=== PATIENT | female | born 1985 | race Caucasian/White ===

== ENCOUNTER 2016-10-19 13:47 | Emergency (ER) | payer OTHER ==
[~2016-10-19] VITALS: Wt 58.0 kg
--- NOTE | 2016-10-19 15:29 | ERD ---
ER Documentation Chief Complaint Date/Time DATE: 10/19/16 TIME: 15:15 Chief Complaint VAG BLEED WITH MILD LOW ABD PAIN SINCE TODAY . 7 WKS PREG HPI 31 y/o female presents to ED for vaginal bleeding. Stated that she saw a streak of blood described as dark red on her vaginal area this morning. Also complains of mild lower abdominal/pelvic pain that started this morning. Pain was described as achy nonradiating. She is 7 weeks . On her fourth . Nauseated but no vomiting. Last seen her OB doctor 10/03/2016 for bladder infection and was prescribed Macrobid. Denies headache, loss of consciousness, dizziness, blurry vision, changes in vision, photophobia, facial pain, ear pain, throat pain, difficulty swallowing, neck pain, shoulder pain, chest pain, cough, hemoptysis, back pain, loss of appetite, vomiting, hematochezia, diarrhea, constipation, urinary symptoms, bladder and bowel incontinences, extremity weakness, extremity tenderness, numbness or tingling sensation, difficulty walking, recent travel, recent exposure to illness, fever, chills. Allergy: NKA PMH: Denies. Family medical history: Denies. with 2 miscarriages LMP: 08/25/2016 Medications: vitamins. Surgery: Denies. Primary Social History: Works as a pharmacy benefits coordinator. Quit smoking cigarettes 5 years ago. Denies use of alcohol, use of illegal drugs. ROS All systems reviewed and are negative except as per history of present illness. Allergies Allergies: Coded Allergies: No Known Allergy (Unverified , 10/19/16) Physical Exam Vitals Vital Signs Date Time Temp Pulse Resp B/P Pulse Ox O2 Delivery O2 Flow Rate FiO2 10/19/16 13:58 98.7 74 20 120/67 98 Physical Exam CONSTITUTIONAL: Well-appearing; well-nourished; in no apparent distress. HEAD: Normocephalic; atraumatic. EYES: Conjunctiva clear, sclera non-icteric, EOM intact. PERRL Ears: Hearing intact. EACs clear, TMs non-bulging, non-inflamed, translucent & mobile, ossicles normal appearance, No obstructions, no erythema, no discharges Nose: No obstructions. No polyps. No external lesions. Mucosa non-inflamed. No external lesions, septum and turbinates normal. No rhinorrhea. No discharges. Frontal sinus is non-tender to palpation. Maxillary sinus is non-tender to palpation. MOUTH: Moist mucous membranes, no lesion, no obstructions, no vesicles, no thrush, patent airway Throat: Uvula in midline. Right tonsil is +1 with no erythema, no exudate. Left tonsil is +1 with no erythema, no exudate. Tolerating secretions well. Good gag reflex. Patent airway. Neck: Supple, without lesions, bruits, or adenopathy. No mass. Thyroid non- enlarged and non-tender to palpation. CHEST: Symmetrical chest. Respirations even and not labored. No retractions noted. CARDIOVASCULAR: Normal S1, S2. RRR. No murmurs, gallops. RESPIRATORY: Normal chest excursion with respiration; breath sounds clear and equal bilaterally; no wheezes, rhonchi, or rales. Breathing even and unlabored. Speaking in clear, full, and complete sentences w/ ease. ABDOMEN: Normal bowel sounds normal. Soft, round, non-distended, non-guarding, no tenderness, no rebound, no organomegaly, no masses, no pulsating abdominal mass. No hernia. No peritoneal signs. Mild pelvic pain. : No CVA tenderness. BACK: Symmetrical shoulder. Spine is midline without deformity, tenderness. No evidence of trauma or deformity. PELVIS: Stable pelvis. No evidence of trauma or deformity. MUSCULOSKELETAL: Normal gait and station. No misalignment, asymmetry, crepitation, defects, tenderness, masses, effusions, decreased range of motion, instability, atrophy or abnormal strength or tone in the head, neck, spine, ribs , pelvis or extremities. No calf tenderness. NEUROVASCULAR: Distal pulses are present. Pedal pulse are present, equal, and normal. Capillary refills are < 2 seconds. NEUROLOGIC: Alert and oriented x4. Speaks full and clear sentences. Cranial Nerves II-XII normal. Sensation to pain, touch, and proprioception normal. Grossly unremarkable. No neurologic deficits. Romberg test is negative. PSYCHOLOGICAL: The patients mood and manner are appropriate. No hallucinations , delusions. Not SI. Not HI. Has the capacity to decide for self SKIN: Normal for age and ethnicity; warm; dry; good turgor; no apparent lesions or exudates. No rashes, hives, discoloration. Intact. Result Diagram: 10/19/16 1345 Results 24 hrs Laboratory Tests Test 10/19/16 13:45 Basophils # 0.110^3/ul Basophils % 1.4% Beta HCG, Quantitative 8325.4mIU/ml Blood Morphology Comment Eosinophils # 0.110^3/ul Eosinophils % 0.9% Hematocrit 42.3% Hemoglobin 14.2g/dl Lymphocytes # 2.310^3/ul Lymphocytes % 25.0% Mean Corpuscular Hemoglobin 28.6pg Mean Corpuscular Hemoglobin Concent 33.5g/dl Mean Corpuscular Volume 85.4fl Mean Platelet Volume 8.0fl Monocytes # 0.610^3/ul Monocytes % 6.2% Neutrophils # 6.210^3/ul Neutrophils % 66.5% Nucleated Red Blood Cells # 0.010^3/ul Nucleated Red Blood Cells % 0.0/100WBC Platelet Count 44853^3/UL Red Blood Count 4.9510^6/ul Red Cell Distribution Width 14.6% Urine Bacteria MODERATE Urine Bilirubin NEGATIVE Urine Clarity CLOUDY Urine Color YELLOW Urine Glucose NEGATIVE% Urine Hemoglobin 3+ Urine Ketones NEGATIVE Urine Leukocyte Esterase TRACE Urine Microscopic RBC 2-5/HPF Urine Microscopic WBC 10-25/HPF Urine Nitrite NEGATIVE Urine Specific Harned 1.025 Urine Squamous Epithelial Cells MANY Urine Total Protein NEGATIVE Urine Urobilinogen 0.2 E.U./dL Urine pH 6.0 White Blood Count 9.310^3/ul Procedures/MDM Examination: Unremarkable examination except mild pelvic pain. No CVA tenderness. Disease process, medical treatment was explained to the patient and family member. They verbalized understanding and agreed with the diagnostic tests, medical treatment, and follow-up care. Radiology: Abdominal ultrasound: Findings: There is a single live intrauterine with a heart rate of 158 bpm, mean sac diameter of 1.27 cm, yolk sac, and crown-rump length of 0.64 cm which is consistent with gestational age of 6 weeks, 2 days. Estimated date of delivery by ultrasound is 06/12/2017. Estimated gestational age by LMP 7 weeks, 4 days. Estimated date of delivery by LMP is 05/26/2017. Impression: Single live intrauterine consistent with a gestational age of 6 weeks and 2 days. Estimated date of delivery is 06/12/2017. Dating by ultrasound is within 9 days of dating by LMP. Blood works: Reviewed. POC urine : Positive. Urinalysis: Reviewed. Case, medical treatment, diagnostic test were discussed with supervising emergency room physician, Dr. Chino Meneses who agreed with my present treatment and follow-up care. Treatment: Diagnostic tests. Re-evaluation: Relieve the pain. No active bleeding. Consultation: None. Differential diagnosis: Ectopic versus miscarriage versus vaginal bleeding versus abdominal pain Medical decision makin31 y/o female presents to ED for vaginal bleeding. Stated that she saw a streak of blood described as dark red on her vaginal area this morning. Also complains of mild lower abdominal/pelvic pain that started this morning. Pain was described as achy nonradiating. She is 7 weeks . On her fourth . Nauseated but no vomiting. Last seen her OB doctor 10/03 for bladder infection and was prescribed Macrobid. Patient's complaint, patient's history, my physical findings, diagnostic test results, re-evaluation are consistent with my final diagnosis of single live intrauterine consistent with gestational age of 6 weeks, 2 days. Medications prescribed are the following: Patient and family member are made aware of the side effects and adverse reactions of the medications prescribed. Instructed on when to seek emergent and medical attention in case allergic/anaphylactic reactions or severe side effects and or adverse reactions to medications. Patient and family member verbalized understanding. Patient instructed Instructed to follow-up with his PCP in 24-48 hours. Also instructed to see her on OB in the next 24-48 hours for reevaluation. Patient stated that she has an appointment with her OB in the next couple of days. Instructed to Call 911 for chest pain, shortness of breath. Advised to come back here in ED as soon as possible for severity of symptoms which includes but not limited to: any new symptoms; shortness of breath/difficulty of breathing; cardiovascular changes; severe gastrointestinal symptoms; signs and symptoms of bleeding and or infection; signs of compartment syndrome/neurovascular changes; neurological changes/deficits. Patient and family member verbalized understanding. Upon discharge, patient is alert and oriented x 4, speaks full and clear sentences, denies pain, has no neurological deficits, has no neurovascular deficits, difficulty of breathing. Breathing even and unlabored. Lung sounds are clear to auscultation. Not in distress. Appears comfortable. Ambulatory with steady gait. Appears satisfied with care provided here in ED. Departure Diagnosis: Primary Impression: Vaginal bleeding in patient at less than 20 weeks gestation Condition: Good Additional Instructions: Follow-up with PCP in the next 24-48 hours. Also instructed to see her own OB in the next 24-48 hours. INGA COLEMAN Oct 19, 2016 15:29
[2016-10-19 15:58] LABS: ADD UMIC YES; URINE BILIRUBIN (Dip) NEGATIVE (NEGATIVE); URINE BLOOD (Dip) 3+ (NEGATIVE); URINE GLUCOSE (Dip) NEGATIVE (NEGATIVE); URINE KETONES (Dip) NEGATIVE (NEGATIVE); URINE LEUKOCYTE ESTERASE (Dip) TRACE (NEGATIVE); URINE NITRITE (Dip) NEGATIVE (NEGATIVE); URINE TOTAL PROTEIN (Dip) NEGATIVE (NEGATIVE); URINE UROBILINOGEN (Dip) 0.2 E.U./dL (0.1-1.0)
[2016-10-19 15:59] LABS: BASOPHIL # 0.1 10^3/ul (0.0-0.1); BASOPHILS % 1.4 % (0.0-2.0); EOSINOPHILS # 0.1 10^3/ul (0.0-0.5); EOSINOPHILS % 0.9 % (0.0-7.0); HEMATOCRIT 42.3 % (37.0-47.0); HEMOGLOBIN 14.2 g/dl (12.0-16.0); LYMPHOCYTES # 2.3 10^3/ul (0.8-2.9); MEAN CORPUSCULAR HEMOGLOBIN 28.6 pg (29.0-33.0); MEAN CORPUSCULAR HGB CONC 33.5 g/dl (32.0-37.0); MEAN CORPUSCULAR VOLUME 85.4 fl (82.0-101.0); MONOCYTE # 0.6 10^3/ul (0.3-0.9); MONOCYTES % 6.2 % (0.0-11.0); NEUTROPHIL # 6.2 10^3/ul (1.6-7.5); NEUTROPHILS % 66.5 % (39.0-77.0); PLATELET COUNT 350 10^3/UL (140-440); RED BLOOD COUNT 4.95 10^6/ul (4.20-5.40); RED CELL DISTRIBUTION WIDTH 14.6 % (11.5-14.5); UNCORRECTED WBC 9.3 10^3/ul (4.8-10.8); WHITE BLOOD COUNT 9.3 10^3/ul (4.8-10.8)
[2016-10-19 16:05] LABS: CONDITION 1; LH ANALYZER COMMENTS 1
--- NOTE | 2016-10-19 16:05 | RADRPT ---
PROCEDURE: OBSTETRICAL ULTRASOUND WITH ENDOVAGINAL IMAGES CLINICAL INDICATION: Vaginal Bleed () TECHNIQUE: Multiple sonographic images of the pelvis were obtained utilizing a transabdominal and endovaginal technique. The images were reviewed on a PACS workstation. COMPARISON: None. LMP: 08/27/2016 FINDINGS: There is a single live intrauterine with heart rate of 158 beats per minute, mean sa c diameter of 1.27 cm, yolk sac, and crown-rump length of 0.64 cm which is consistent with a gestati onal age of 6 weeks, 2 days . The estimated date of delivery by ultrasound is 06/12/2017 . The estimated gestational age by LMP is 7 weeks, 4 days . The estimated date of delivery by LMP is 06/03/2017 . The right ovary measures 3.2 x 1.9 x 2.1 cm. The left ovary measures 2.8 x 1.8 x 2.3 cm. There is no rmal vascular flow in both ovaries. No significant ovarian lesions are seen. No significant pelvic free fluid is identified. IMPRESSION: Single live intrauterine consistent with a gestational age of 6 weeks, 2 days . The estimated date of delivery is 06/12/2017 . Dating by ultrasound is within 9 days of dating by LMP. RPTAT: EE Physician Ino Date Time Electronically viewed and signed by Physician Ino on 10/19/2016 16:04 /
[2016-10-19 16:07] LABS: URINE COLOR YELLOW (YELLOW)
[2016-10-19 16:13] LABS: SQUAMOUS EPITHELIAL CELL,UR MANY
[2016-10-19 16:14] LABS: BACTERIA,URINE MODERATE
[2016-10-20] MEDS ORDERED: PRENAT PO (03:34)
[2016-10-20] MEDS ORDERED: ACET500C5 PO (04:43)
== END 2016-10-19 17:17 | disposition home or self-care (01) ==
LOC: FTE 13:47
DX: O20.9 Hemorrhage in early pregnancy, unspecified (principal); R10.2 Pelvic and perineal pain; Z87.891 Personal history of nicotine dependence; Z3A.01 Less than 8 weeks gestation of pregnancy
CPT/HCPCS: 36415; 76801; 81001; 84702; 85025; 86900; 86901; Z7502; 81003

== ENCOUNTER 2016-10-20 02:29 | Emergency (ER) | payer OTHER ==
[~2016-10-20] VITALS: Ht 157.5 cm; Wt 60.5 kg
[2016-10-20 02:35] VITALS: Ht 157.5 cm; Wt 60.5 kg
[2016-10-20] MEDS ORDERED: PRENAT PO (03:34)
--- NOTE | 2016-10-20 03:35 | ERD ---
ER Documentation Chief Complaint Date/Time DATE: 10/20/16 TIME: 03:33 Chief Complaint back pain and heavy bleeding 7 wks preg HPI 31-year-old female presents here in emergency department for complaints of heavier vaginal bleeding, patient is approximately 6-7 weeks , was seen in the emergency department earlier today for the same problem. Patient had minimal bleeding at that time, at this time, she is bleeding heavier, passing some clots. Worried about her baby. Patient was complaining of pelvic pain and back pain, cramping pain, succession scale, accompanying the vaginal bleeding. ROS All systems reviewed and are negative except as per history of present illness. Medications Home Meds Reported Medications Multivit/Min/Fol Ac/Iron/Pren* ( S*) Unknown Strength Tab, PO DAILY, TAB 10/20/16 Allergies Allergies: Coded Allergies: No Known Allergy (Unverified , 10/19/16) PMhx/Soc Medical and Surgical Hx: pt denies Medical Hx, pt denies Surgical Hx Hx Miscellaneous Medical Probl: Yes (7 WEEKS ) Hx Alcohol Use: No Hx Substance Use: No Hx Tobacco Use: No FmHx Family History: No coronary disease, No diabetes, No other Physical Exam Vitals Vital Signs Date Time Temp Pulse Resp B/P Pulse Ox O2 Delivery O2 Flow Rate FiO2 10/20/16 02:35 98.6 85 18 111/72 98 Physical Exam GENERAL: The patient is well developed and appropriate for usual state of health, in no apparent distress. CHEST: Clear to auscultation bilaterally. There are no rales, wheezes or rhonchi. HEART: Regular rate and rhythm. No murmurs, clicks, rubs or gallops. No S3 or S4. ABDOMEN: Soft, nontender and nondistended. Good bowel sounds. No rebound or guarding. No gross peritonitis. No gross organomegaly or masses. No Estevez sign or McBurney point tenderness. BACK: No midline or flank tenderness. EXTREMITIES: Equal pulses bilaterally. There is no peripheral clubbing, cyanosis or edema. No focal swelling or erythema. Full range of motion. Grossly neurovascularly intact. NEURO: Alert and oriented. Cranial nerves 2-12 intact. Motor strength in all 4 extremities with 5/5 strength. Sensation grossly intact. Normal speech and gait. SKIN: There is no apparent rash or petechia. The skin is warm and dry. HEMATOLOGIC AND LYMPHATIC: There is no evidence of excessive bruising or lymphedema. No gross cervical, axillary, or inguinal lymphadenopathy. VAGINAL: Moderate amount of blood in the vaginal vault, cervical os is closed, adnexal tenderness or cervical motion tenderness noted. Noted tissue in the vaginal canal. Results 24 hrs PROCEDURE: ULTRASOUND PELVIS CLINICAL INDICATION: 31-year-old female with vaginal bleeding. TECHNIQUE: Multiple sonographic images of the pelvis were obtained utilizing a transabdominal and endovaginal technique. The images were reviewed on a PACS workstation. COMPARISON: Ultrasound pelvis October 19, 2016. FINDINGS: The endometrial echo complex is within normal limits and measures 9.6 mm. There is no evidence for abnormal color flow. There is no sonographic evidence for an intrauterine gestation. There is no evidence for free fluid. The right ovary has a normal echotexture and measures 3.1 x 2.2 x 2.0 cm. The left ovary has a normal echotexture and measures 3.0 x 1.9 x 2.1 cm. There is flow identified within the ovaries bilaterally. No adnexal masses are noted. IMPRESSION: Unremarkable pelvic ultrasound without sonographic evidence for an intrauterine gestation. There appears to have been an interval spontaneous . .Maurice Pina MD, MD Date Time Electronically viewed and signed by .Maurice Pina MD, on 10/20/2016 04:14 .M/ Procedures/MDM Medical Decision Making: Patients vaginal bleeding is most likely consistent of spontaneous . Patient does not show any evidence of hypovolemic shock. Patients hemoglobin and hematocrit is stable. There is low suspicion for ectopic . SANDRA results show possible spontaneous since then to return for any seen seen earlier was not seen anymore. BetaHCG Quantitative is was done earlier today which was appropriate for , a change in beta hCG would not be a appreciated at this time, repeat testing is not indicated at this time. The patient is Rh+, does not need RhoGAM this time. There is no signs of symptoms of dehydration. There is low suspicion for sepsis. Patient appears well and is hemodynamically stable. Disposition: Home. Condition: Stable Prescription: Tylenol Instructions: Patient is advised to do bed rest, avoid heavy lifting, and avoid having sex until cleared by OB doctor. Patient is advised to follow up with OB doctor in 48 hours for reevaluation of symptoms, repeat beta HCG quantitative. Patient is advised that is symptoms are worst, severe bleeding, dizziness, severe abdominal pain, fever, worst signs and symptoms to return to the emergency department immediately. Departure Diagnosis: Primary Impression: Spontaneous Condition: Stable Patient Instructions: Miscarriage, Spontaneous (Completed) Additional Instructions: Patient is advised to do bed rest, avoid heavy lifting, and avoid having sex until cleared by OB doctor. Patient is advised to follow up with OB doctor in 48 hours for reevaluation of symptoms, repeat beta HCG quantitative. Patient is advised that is symptoms are worst, severe bleeding, dizziness, severe abdominal pain, fever, worst signs and symptoms to return to the emergency department immediately. ANILA STALEY NP Oct 20, 2016 03:35
--- NOTE | 2016-10-20 04:14 | RADRPT ---
PROCEDURE: ULTRASOUND PELVIS CLINICAL INDICATION: 31-year-old female with vaginal bleeding. TECHNIQUE: Multiple sonographic images of the pelvis were obtained utilizing a transabdominal and endovaginal technique. The images were reviewed on a PACS workstation. COMPARISON: Ultrasound pelvis October 19, 2016. FINDINGS: The endometrial echo complex is within normal limits and measures 9.6 mm. There is no evidence for a bnormal color flow. There is no sonographic evidence for an intrauterine gestation. There is no ev idence for free fluid. The right ovary has a normal echotexture and measures 3.1 x 2.2 x 2.0 cm. Th e left ovary has a normal echotexture and measures 3.0 x 1.9 x 2.1 cm. There is flow identified wit hin the ovaries bilaterally. No adnexal masses are noted. IMPRESSION: Unremarkable pelvic ultrasound without sonographic evidence for an intrauterine gestation. There ap pears to have been an interval spontaneous . .Maurice Pina MD, MD Date Time Electronically viewed and signed by .Maurice Pina MD, on 10/20/2016 04:14 .M/
[2016-10-20] MEDS ORDERED: ACET500C5 PO (04:43)
== END 2016-10-20 05:35 | disposition home or self-care (01) ==
LOC: FTE 02:29
DX: O03.9 Complete or unspecified spontaneous abortion without complication (principal)
CPT/HCPCS: 76801; 76817; 88305; Z7502

== ENCOUNTER 2017-06-25 16:14 | Outpatient (CLI) | payer OTHER ==
[~2017-06-25] VITALS: Ht 160 cm; Wt 71.1 kg
[~2017-06-25 16:14] MED LIST: ACET500C5 PO; PRENAT PO
[2017-06-25 16:23] VITALS: Ht 160 cm; Wt 71.1 kg
[2017-06-25 16:24] VITALS: BP 107/71; PULSE 85; RESP 20
--- NOTE | 2017-06-25 17:42 | RADRPT ---
PROCEDURE: Obstetrical ultrasound CLINICAL INDICATION: Labor..efw,carlos TECHNIQUE: Multiple sonographic images of the pelvis were obtained. The images were reviewed on a PACS workstation. COMPARISON: None FINDINGS: The cervix is closed with a length of 4.4 cm. There is a single viable intrauterine gestation. Cardiac activity is present with 157 beats per minute. There is a breech presentation. The placenta is posterior. There is no evidence for an abruption or placenta previa. There is a normal amount of amniotic fluid with a maximum vertical pocket of 4.4 cm. Measurements were made in order to determine age. The results are as follows (cm): BPD =5.23 HC =20.31 AC =18.82 FL =4.10 Estimated gestational age by ultrasound of approximately 22 weeks, 6 days. The estimated date of delivery by ultrasound is 10/23/2017. Estimated gestational age by LMP of approximately 22 weeks, 5 days. The estimated date of delivery by LMP is 10/24/2017. EFW = 579 grams (71st percentile) IMPRESSION: Single viable intrauterine gestation of approximately 22 weeks, 6 days . The estimated date of delivery is 10/23/2017 . Dating by ultrasound is within 1 day of dating by LMP. Breech presentation. Normal amount of amniotic fluid. The cervix is closed and measures 4.4 cm. The estimated weight is 579 g which is in the 71st percentile. RPTAT: EE Physician Ino Date Time Electronically viewed and signed by Physician Ino on 06/25/2017 17:42 /
--- NOTE | 2017-06-25 18:09 | PN ---
Triage Information Date/Time Reason for visit: Left side Numbness Weeks of Gestation 3/ /Para 22+ Hypertention: none Objective Vital Signs Date Time Temp Pulse Resp B/P Pulse Ox O2 Delivery O2 Flow Rate FiO2 06/25/17 16:24 98.3 85 20 107/71 99 Room Air Heart Rate: 130's Contractions: None Disposition: Discharge Assessment/Plan patient is cleared from OB and sent to ER for further evaluation CHARMAINE HOUSTON M.D. Jun 25, 2017 18:09
[2017-06-25 18:16] LABS: ADD UMIC NO; UR ASCORBIC ACID NEGATIVE (NEGATIVE); UR BILIRUBIN (Dip) NEGATIVE (NEGATIVE); UR BLOOD (Dip) NEGATIVE (NEGATIVE); UR CLARITY CLEAR (CLEAR); UR COLOR YELLOW (YELLOW); UR GLUCOSE (Dip) NEGATIVE (NEGATIVE); UR KETONES (Dip) NEGATIVE (NEGATIVE); UR LEUKOCYTE ESTERASE (Dip) NEGATIVE Leu/ul (NEGATIVE); UR NITRITE (Dip) NEGATIVE (NEGATIVE); UR SPECIFIC GRAVITY (Dip) 1.014 (1.003-1.030); UR TOTAL PROTEIN (Dip) NEGATIVE (NEGATIVE); UR UROBILINOGEN (Dip) NEGATIVE (NEGATIVE)
--- NOTE | 2017-06-25 19:37 | TRIAGE ---
OB Triage Datetime Report Generated by CPN: 06/25/2017 19:37 Datetime: 06/25/2017 19:32 Stage of : OB Triage Assessment Type: Triage Maternal Assessment Level of Consciousness: Fully Conscious DTR's/Clonus: DTRs 2+; No Clonus Headache: Denies Blurred Vision: No Respiratory Effort: Unlabored; Regular Rhythm; Equal Expansion Breath Sounds, Left: Clear and Equal Breath Sounds, Right: Clear and Equal Nausea/Vomiting: Denies RUQ Epigastric Pain: Denies Lower Extremities Edema: None Degree: None Upper Extremities Edema: None Degree: None Facial Edema: None Temperature Route: Axillary Fall Risk Assessment History of Falling: (0) No Secondary Diagnosis: (0) No Ambulatory Aid: (0) Bedrest/Nurse Assist IV Therapy: (0) No Gait: (0) Normal/Bedrest/Immobile Mental Status: (0) Oriented to Own Ability Fall Score: 0 Fall Risk Score Definition: No Risk: No action required Datetime: 06/25/2017 19:27 Time of Arrival: 06/25/2017 16:00 EGA: 22.5 Arrived By: Ambulatory Arrived From: Home Chief Complaint: LEFT SIDED NUMBNESS from the back of her head to the left side of her hill to her left arm , PAIN, PRESSURE. left eye pain as well Movement: Present Contractions: Denies/Absent Rupture of Membranes: Denies Vaginal Bleeding: None Vaginal Discharge: Denies Recent Sexual Intercouse: Denies Abdominal Trauma: Not Applicable Patient Complaints: Visual Disturbance Time Provider Notified: 06/25/2017 16:15 Provider Notified: CELSO Initial Plan: NST Datetime: 06/25/2017 18:01 Labor Evaluation Frequency: 0 Monitor Mode: External Duration (sec)2399: 0 Resting Tone [place]: Relaxed Contraction Comments: no uc's noted at this time. pt denies uc's Heart Rate FHR Baseline Rate: 155 Monitor Mode: External US Variability: Moderate 6-25 bpm Accelerations: 15X15 Decelerations: None Category: Category I Comments: nst reactive for gestational age Datetime: 06/25/2017 16:30 Assessment Type: Triage Maternal Assessment Level of Consciousness: Fully Conscious DTR's/Clonus: DTRs 2+; No Clonus Headache: Denies Blurred Vision: No Respiratory Effort: Unlabored; Regular Rhythm; Equal Expansion Breath Sounds, Left: Clear and Equal Breath Sounds, Right: Clear and Equal Nausea/Vomiting: Denies RUQ Epigastric Pain: Denies Facial Edema: None Fall Risk Assessment History of Falling: (0) No Secondary Diagnosis: (0) No Ambulatory Aid: (0) Bedrest/Nurse Assist IV Therapy: (0) No Gait: (0) Normal/Bedrest/Immobile Mental Status: (0) Oriented to Own Ability Fall Score: 0 Fall Risk Score Definition: No Risk: No action required
[2017-06-25] MEDS ORDERED: ACET500C5 PO (20:47)
[2017-06-25] MEDS ORDERED: [UNRECOGNIZED DRUG - CODE] TP (20:48)
== END 2017-06-25 18:15 | disposition home or self-care (01) ==
LOC: OBT 16:14 → L-D 16:16 → OBT 18:15
PROVIDERS: ATTEND Obstetrics & Gynecology
DX: O26.892 Other specified pregnancy related conditions, second trimester (principal); Z3A.22 22 weeks gestation of pregnancy; R20.0 Anesthesia of skin
CPT/HCPCS: 76815; 76817; 81003; Z7500; G0463

== ENCOUNTER 2017-06-25 18:24 | Emergency (ER) | payer OTHER ==
[~2017-06-25] VITALS: Ht 160 cm; Wt 71.0 kg
[2017-06-25 18:26] VITALS: Ht 160 cm; Wt 71.0 kg
--- NOTE | 2017-06-25 20:37 | ERD ---
ER Documentation Chief Complaint Chief Complaint left arm pain since this am denies injury, 22 wks cleared from L&D HPI This pleasant 31-year-old 22 week female presents to emergency department with left neck pain, left arm pain, patient reports that symptoms started Wednesday but were relieved with Tylenol, patient states that pain returned has been constant all day. Denies numbness or tingling to her fingers , denies any abdominal pain, vaginal bleeding, change in baby movement. ROS All systems reviewed and are negative except as per history of present illness. Medications Home Meds Active Scripts Acetaminophen* (Tylophen*) 500 Mg Capsule, 1 CAP PO Q6H Y for PAIN AND OR ELEVATED TEMP, #20 CAP Prov:ANILA STALEY [employer] 10/20/16 Reported Medications Multivit/Min/Fol Ac/Iron/Pren* ( S*) Unknown Strength Tab, PO DAILY, TAB 10/20/16 Allergies Allergies: Coded Allergies: No Known Allergy (Unverified , 10/19/16) PMhx/Soc Hx Miscellaneous Medical Probl: Yes (7 WEEKS ) Hx Alcohol Use: No Hx Substance Use: No Hx Tobacco Use: No Physical Exam Vitals Vital Signs Date Time Temp Pulse Resp B/P Pulse Ox O2 Delivery O2 Flow Rate FiO2 06/25/17 18:26 98.6 77 20 112/67 98 Vitals stable, triage notes reviewed Physical Exam Const: Well-nourished well-appearing well-hydrated 81-year-old female in no acute acute distress Head: Atraumatic Eyes: Normal Conjunctiva, PERRLA, EOMI ENT: Neck: No bony point tenderness, left paraspinal tenderness, trapezial tenderness, and parascapular tenderness. Resp: Clear to auscultation bilaterally no respiratory distress Cardio: Regular rate and rhythm, no murmurs Abd: 's abdomen Skin: Back: Ext: Upper Extremity -left arm Skin: No laceration, or evidence of external trauma, both trapezial and parascapular spasm radiating from cervical spine Compartments: Soft Motor: Full active range of motion shoulder/elbow/wrist/ hand Sensation: Intact shoulder/pinky/middle finger/thumb web space Bones: Nontender humerus/elbow/forearm/wrist/hand Snuffbox: Nontender Joints: No effusion Pulses/Perfusion: 2+ radial, Capillary refill < 2 seconds Neur: Awake and alert Psych: Normal Mood and Affect Procedures/MDM This pleasant 22 week female presents to emergency department with complaint of left arm pain, emergency room course includes history and physical, physical positive for cervical spasm, para cervical spine tenderness, trapezial tenderness, and parascapular tenderness on the left. Patient has no abnormal neurological findings, plan to treat patient with 650 mg of Tylenol here, plan to discharge patient home with Tylenol, ice to affected area, topical salonpas, follow-up with primary physician for treatment options during , massage , physical therapy, return to emergency department for worsening of symptoms. Patient is stable with no new complaints during ER course, clinically there is no current evidence to suggest meningitis, sepsis, cervical spine abscess, tumor , TIA, CVA acute coronary syndromes or any other emergent condition appearing to require further evaluation or hospitalization. I feel the patient is stable for discharge at this time. I have discussed results, examination findings, the treatment plan with the patient and family present prior to discharge. Indications for emergent reevaluation, side effects of medication were also discussed. All questions were answered. Patient verbalizes understanding and agrees with plan of care. Departure Diagnosis: Primary Impression: Cervical myopathy Condition: Good Patient Instructions: Myofascial Pain Syndrome Additional Instructions: Thank you for for coming to the [facility] for your care today. Please ask your nurse or provider if you have questions about your care today and do not leave until all your questions have been answered. Please use any medications given as directed and follow-up with your doctor (or the doctor you were referred to) in the next 2-3 days. If you do not have a primary care doctor you may follow up at the [facility] (listed below). You may also use motrin and tylenol as needed for fever and/or pain unless instructed otherwise by your provider or nurse. Indications for more urgent follow-up have been discussed, but you may return to the Emergency Department at ANY time for any worrisome or worsening symptoms. If you have abdominal pain, please know that no test or exam you received is perfect and you should follow up within 8 hours for continued pain. If you had any imaging studies today, such as an X-Ray or CT Scan, these studies will be reviewed later by a radiologist. You will be called if there are important findings that were not identified today, so make sure the contact information you provided at registration is correct. If you received any narcotic pain control medicine today, such as Vicodin, Morphine or Dilaudid, your coordination and judgment may be affected for a number of hours. Please do not drive or operate heavy machinery, and you may want someone to assist you at home. If you were given a prescription for narcotic medication, be aware that it is very addictive- use sparingly and only if necessary. RONEN GRIFFITH Jun 25, 2017 20:37
[2017-06-25] MEDS ORDERED: ACET500C5 PO (20:47)
[2017-06-25] MEDS ORDERED: [UNRECOGNIZED DRUG - CODE] TP (20:48)
[2017-06-25 20:56] VITALS: BP 112/67; RESP 20; TEMP 98.7
[2017-06-25] MEDS ORDERED: ACETAMINOPHEN 325 MG TAB PO ONE (21:00)
== END 2017-06-25 20:57 | disposition home or self-care (01) ==
LOC: FTE 18:24
DX: O99.89 Other specified diseases and conditions complicating pregnancy, childbirth and the puerperium (principal); M50.020 Cervical disc disorder with myelopathy, mid-cervical region, unspecified level; Z3A.22 22 weeks gestation of pregnancy
CPT/HCPCS: Z7502; Z7610; 99283

== ENCOUNTER 2017-07-22 10:24 | Outpatient (CLI) | payer OTHER ==
[~2017-07-22] VITALS: Ht 160 cm; Wt 73.1 kg
[~2017-07-22 10:24] MED LIST changes: +[UNRECOGNIZED DRUG - CODE] TP
[2017-07-22 10:38] VITALS: Ht 160 cm; Wt 73.1 kg
[2017-07-22 10:39] VITALS: BP 115/73; PULSE 75; RESP 18
[2017-07-22] MEDS ORDERED: FER325 PO (10:43)
[2017-07-22 10:59] LABS: ADD UMIC YES; UR ASCORBIC ACID NEGATIVE (NEGATIVE); UR BACTERIA FEW /HPF (NONE SEEN); UR BILIRUBIN (Dip) NEGATIVE (NEGATIVE); UR BLOOD (Dip) 2+ mg/dL (NEGATIVE); UR CLARITY SLIGHTLY CLOUDY (CLEAR); UR COLOR YELLOW (YELLOW); UR GLUCOSE (Dip) NEGATIVE (NEGATIVE); UR KETONES (Dip) NEGATIVE (NEGATIVE); UR LEUKOCYTE ESTERASE (Dip) 3+ Leu/ul (NEGATIVE); UR NITRITE (Dip) NEGATIVE (NEGATIVE); UR RBC 4 /HPF (0-5); UR SPECIFIC GRAVITY (Dip) 1.005 (1.003-1.030); UR SQUAMOUS EPITHELIAL CELL MODERATE /HPF (FEW); UR TOTAL PROTEIN (Dip) NEGATIVE (NEGATIVE); UR UROBILINOGEN (Dip) NEGATIVE (NEGATIVE)
[2017-07-22 11:26] LABS: BASOPHILS % 0.2 % (0.0-2.0); EOSINOPHILS # 0.1 10^3/ul (0.0-0.5); EOSINOPHILS % 0.4 % (0.0-7.0); HEMATOCRIT 38.4 % (37.0-47.0); HEMOGLOBIN 12.7 g/dl (12.0-16.0); LYMPHOCYTES # 1.8 10^3/ul (0.8-2.9); LYMPHOCYTES % 14.4 % (15.0-51.0); MEAN CORPUSCULAR HEMOGLOBIN 29.3 pg (29.0-33.0); MEAN CORPUSCULAR HGB CONC 33.1 g/dl (32.0-37.0); MEAN CORPUSCULAR VOLUME 88.7 fl (82.0-101.0); MEAN PLATELET VOLUME 9.4 fl (7.4-10.4); MONOCYTE # 0.9 10^3/ul (0.3-0.9); MONOCYTES % 6.9 % (0.0-11.0); NEUTROPHIL # 9.5 10^3/ul (1.6-7.5); NEUTROPHILS % 76.8 % (39.0-77.0); PLATELET COUNT 323 10^3/UL (140-415); RED BLOOD COUNT 4.33 10^6/ul (4.20-5.40); RED CELL DISTRIBUTION WIDTH 13.2 % (11.5-14.5); WHITE BLOOD COUNT 12.4 10^3/ul (4.8-10.8)
--- NOTE | 2017-07-22 12:07 | RADRPT ---
PROCEDURE: Limited obstetric ultrasound CLINICAL INDICATION: Pain TECHNIQUE: Multiple transverse and longitudinal grayscale images of the pelvis were obtained wilkinson sabdominally and transvaginally.. COMPARISON: 06/25/17 FINDINGS: The cervix is closed with a length of 3.7 cm. There is a single viable intrauterine gestation. Cardiac activity is present with 148 beats per min [place]. There is a vertex presentation. The placenta is posterior. There is no evidence for an abruption or placenta previa. RPTAT: AA IMPRESSION: Cervix length measures 3.7 cm. .Colt Fabian MD, Date Time Electronically viewed and signed by .Colt Fabian MD, on 07/22/2017 12:07 .S/
--- NOTE | 2017-07-22 12:25 | TRIAGE ---
OB Triage Datetime Report Generated by CPN: 07/22/2017 12:25 Datetime: 07/22/2017 11:49 Stage of : OB Triage Maternal Assessment Level of Consciousness: Fully Conscious Labor Evaluation Frequency: 1UC/HR Monitor Mode: External Duration (sec)2399: 110 Quality: Mild Pattern: Normal: <= 5 Contractions in 10 Minutes Resting Tone [place]: Relaxed Heart Rate FHR Baseline Rate: 145 Monitor Mode: External US Variability: Moderate 6-25 bpm Accelerations: 15X15 Decelerations: None Category: Category I Pain Assessment Pain Scale: 0 Pain Goal: 3 Vaginal Exam Membrane Status: Intact Vaginal Bleeding: None Datetime: 07/22/2017 10:53 Labor Evaluation Frequency: X1 Monitor Mode: External Duration (sec)2399: 70 Pattern: Normal: <= 5 Contractions in 10 Minutes Resting Tone [place]: Relaxed Heart Rate FHR Baseline Rate: 150 Monitor Mode: External US Variability: Moderate 6-25 bpm Accelerations: 10X10 Decelerations: None Category: Category I Pain Assessment Pain Scale: 7 Pain Presence: Intermittent Pain Type: Cramping Pain Location: Abdomen Pain Relief Measures: Comfort Measures Datetime: 07/22/2017 10:37 Assessment Type: Admission Assessment Maternal Assessment Level of Consciousness: Fully Conscious DTR's/Clonus: DTRs 2+; No Clonus Headache: Denies Blurred Vision: No Respiratory Effort: Unlabored; Regular Rhythm; Equal Expansion Breath Sounds, Left: Clear and Equal Breath Sounds, Right: Clear and Equal Nausea/Vomiting: Denies RUQ Epigastric Pain: Denies Lower Extremities Edema: None Degree: None Upper Extremities Edema: None Degree: None Facial Edema: None Fall Risk Assessment History of Falling: (0) No Secondary Diagnosis: (0) No Ambulatory Aid: (0) Bedrest/Nurse Assist IV Therapy: (0) No Gait: (0) Normal/Bedrest/Immobile Mental Status: (0) Oriented to Own Ability Fall Score: 0 Fall Risk Score Definition: No Risk: No action required Datetime: 07/22/2017 10:34 Time of Arrival: 07/22/2017 10:16 EGA: 26.5 Arrived By: Ambulatory Arrived From: Home Chief Complaint: CRAMPING SINCE 07/21/17 @1100 Movement: Present Contractions: Denies/Absent Rupture of Membranes: Denies Vaginal Bleeding: None Vaginal Discharge: Denies Recent Sexual Intercouse: Denies Abdominal Trauma: Not Applicable Patient Complaints: Cramping Time Provider Notified: 07/22/2017 10:43 Provider Notified: FOROOHAR Initial Plan: TOCO/US. CBC, UA, CERVICAL LENGTH Datetime: 07/22/2017 10:26 Stage of : OB Triage Pain Assessment Pain Scale: 7 Pain Presence: Intermittent Pain Type: Cramping Pain Location: Abdomen Pain Relief Measures: Comfort Measures Datetime: 06/25/2017 19:32 Fall Score: 0 Fall Risk Score Definition: No Risk: No action required Datetime: 06/25/2017 19:27 EGA: 22.6 Datetime: 06/25/2017 16:30 Fall Score: 0 Fall Risk Score Definition: No Risk: No action required
--- NOTE | 2017-07-22 12:38 | CONS ---
Date/Time of Note Date/Time of Note DATE: 07/22/17 TIME: 12:30 Consultation Date/Type/Reason Admit Date/Time July 22, 2017 OB triage consult This patient is a 31 years old 2 para 0 1 with estimated date of confinement of October 23, 2016 which makes her 26 weeks and 5 days today. She came to triage complaining of cramping abdominal pain and low pelvic pain and pressure for 24 hours. On examination she is a well-developed well-nourished lady at midterm. She is afebrile abdomen is soft slight tenderness of the lower abdomen and symphysis pubic area no CVA tenderness. heart tone is normal with fairly good variability no B-cell. Her general vital signs appears to be within normal limits with blood pressure was 115/73 pulse rate 75,, respiration 18 temperature 98.7,. Laboratory Tests Test 07/22/17 10:20 07/22/17 11:05 Urine Color YELLOW Urine Clarity SLIGHTLY CLOUDY Urine pH 7.0 Urine Specific [place] 1.005 Urine Ketones NEGATIVEmg/dL Urine Nitrite NEGATIVEmg/dL Urine Bilirubin NEGATIVEmg/dL Urine Urobilinogen NEGATIVEmg/dL Urine Leukocyte Esterase 3+Lm/ul Urine Microscopic RBC 4/HPF Urine Microscopic WBC 20/HPF Urine Squamous Epithelial Cells MODERATE/HPF Urine Bacteria FEW/HPF Urine Hemoglobin 2+mg/dL Urine Glucose NEGATIVEmg/dL Urine Total Protein NEGATIVEmg/dl White Blood Count 12.410^3/ul Red Blood Count 4.3310^6/ul Hemoglobin 12.7g/dl Hematocrit 38.4% Mean Corpuscular Volume 88.7fl Mean Corpuscular Hemoglobin 29.3pg Mean Corpuscular Hemoglobin Concent 33.1g/dl Red Cell Distribution Width 13.2% Platelet Count 37724^3/UL Mean Platelet Volume 9.4fl Neutrophils % 76.8% Lymphocytes % 14.4% Monocytes % 6.9% Eosinophils % 0.4% Basophils % 0.2% Nucleated Red Blood Cells % 0.0/100WBC Neutrophils # 9.510^3/ul Lymphocytes # 1.810^3/ul Monocytes # 0.910^3/ul Eosinophils # 0.110^3/ul Basophils # 0.010^3/ul Nucleated Red Blood Cells # 0.010^3/ul Constitutional: No chills, No diaphoresis, No disoriented, No febrile, No improved, No no complaints, No other, No poor po, No requiring IVF, No requiring O2 Eyes: No discharge, No no complaints, No other, No pain, No redness, No visual change ENT: No bleeding, No congestion, No discharge, No dysphagia, No no complaints, No other, No pain, No sore throat Respiratory: No cough, No no complaints, No other, No pain, No pleuritic pain, No shortness of breath, No sputum, No wheezing Cardiovascular: No chest pain, No edema, No lightheadedness, No no complaints, No orthopenea, No other, No palpitations, No paroxysmal nocturnal dyspnea Gastrointestinal: No blood, No constipation, No decreased appetite, No diarrhea , No flatus, No nausea, No no complaints, No other, No pain, No passing stool, No vomiting Genitourinary: other (Due to lack of any contraction the pelvic examination was not performed), No bleeding, No discharge, No dysuria, No flank pain, No hematuria, No no complaints Musculoskeletal: No back pain, No bone/joint pain, No neck pain, No no complaints, No other, No restricted range of motion, No swelling Skin: No bruising, No erythema, No laceration, No no complaints, No other, No pruritis, No rash, No skin lesions Neurologic: other (Knee-jerk reflexes normal), No confusion, No dizziness, No focal-weakness, No headache, No no complaints , No seizure, No syncope Additional Comments Urinalysis report is 12+ blood 3+ leukoesterase WBC was 20 CBC was basically normal with WBC of over 12.4 thousand hemoglobin 12.7 hematocrit 38.4. On ultrasound study report was a single viable intrauterine gestation with cardiac activity 148 bpm in vertex presentation the cervical length was 3.7 cm the cervix was closed there was no evidence of abruption or placenta previa. .With these finding and possible urinary tract infection she was given a prescription for Macrobid 100 mg #20 to be taken twice a day the urine specimen was sent for culture and sensitivity and patient was advised to have her MD call for the results of the sensitivity and to adjust the antibiotic accordingly .. Social History Smoking Status: Never smoker Exam/Review of Systems Vital Signs Vitals Vital Signs Date Time Temp Pulse Resp B/P Pulse Ox O2 Delivery O2 Flow Rate FiO2 11/16/17 10:39 98.7 75 18 115/73 Room Air Results Result Diagram: 07/22/17 1105 Results 24 hrs Laboratory Tests Test 07/22/17 10:20 07/22/17 11:05 Urine Color YELLOW Urine Clarity SLIGHTLY CLOUDY A Urine pH 7.0 Urine Specific [place] 1.005 Urine Ketones NEGATIVE Urine Nitrite NEGATIVE Urine Bilirubin NEGATIVE Urine Urobilinogen NEGATIVE Urine Leukocyte Esterase 3+ H Urine Microscopic RBC 4 Urine Microscopic WBC 20 H Urine Squamous Epithelial Cells MODERATE Urine Bacteria FEW A Urine Hemoglobin 2+ H Urine Glucose NEGATIVE Urine Total Protein NEGATIVE White Blood Count 12.4 #H Red Blood Count 4.33 Hemoglobin 12.7 Hematocrit 38.4 Mean Corpuscular Volume 88.7 Mean Corpuscular Hemoglobin 29.3 Mean Corpuscular Hemoglobin Concent 33.1 Red Cell Distribution Width 13.2 Platelet Count 323 Mean Platelet Volume 9.4 Neutrophils % 76.8 Lymphocytes % 14.4 L Monocytes % 6.9 Eosinophils % 0.4 Basophils % 0.2 Nucleated Red Blood Cells % 0.0 Neutrophils # 9.5 H Lymphocytes # 1.8 Monocytes # 0.9 Eosinophils # 0.1 Basophils # 0.0 Nucleated Red Blood Cells # 0.0 TIFFANY CHA MD Jul 22, 2017 12:38
== END 2017-07-22 12:33 | disposition home or self-care (01) ==
LOC: OBT 10:24 → L-D 10:24 → OBT 12:33
DX: O26.892 Other specified pregnancy related conditions, second trimester (principal); Z3A.26 26 weeks gestation of pregnancy; R10.2 Pelvic and perineal pain
CPT/HCPCS: 36415; 76817; 81001; 85025; Z7500; G0463